=== PATIENT | male | born 1945 | race Caucasian/White ===

== ENCOUNTER 2017-05-03 13:32 | Inpatient (IN) | payer OTHER, BC ==
[~2017-05-03] VITALS: Ht 180.3 cm; Wt 86.8 kg
[2017-05-03 15:33] LABS: HEMATOCRIT 45.2 % (38.0-50.0); MCH 32.3 PG (29.0-34.0); MCHC 33.6 G/DL (30.0-36.0); MEAN PLAT.VOLUME 9.9 uM^3 (9.0-12.4); PLATELET COUNT 224 K/uL (156-360); RBC DIS.WIDTH-CV 12.9 % (11.8-14.6); RBC DIS.WIDTH-SD 46.2 % (39-53); RED BLOOD COUNT 4.71 M/uL (4.00-5.50); WHITE BLOOD COUNT 9.7 K/uL (4.1-10.2)
[2017-05-03 15:43] LABS: PROTHROMBIN TIME 11.1 SEC (10.2-12.9)
[2017-05-03 15:45] LABS: PTT 31.6 SEC (25-37)
[2017-05-03 15:47] LABS: CHLORIDE 109 mEq/L (99-109); POTASSIUM 4.1 mEq/L (3.7-5.4); SODIUM 141 mEq/L (136-147)
[2017-05-03 15:48] LABS: GLUCOSE 105 mg/dL (70-99)
[2017-05-03 15:50] LABS: ANION GAP 12 MEQ/L (2-14)
[2017-05-03 15:52] LABS: GFR ESTIMATE (CALCULATED) 53 mL/min/
[2017-05-03 15:53] LABS: UREA NITROGEN (BUN) 17 mg/dL (9-23)
[2017-05-03 16:37] LABS: TROP-I INTERPRETATION NEGATIVE; TROPONIN-I < 0.01 ng/mL (0.0-0.30)
[2017-05-03] MEDS ORDERED: LISINOPRIL20 MG PO (17:09)
[2017-05-03] MEDS ORDERED: CELEBREX100 MG PO (17:10)
[2017-05-03 22:02] VITALS: BP 178/83
[2017-05-03 22:36] LABS: TROP-I INTERPRETATION NEGATIVE; TROPONIN-I < 0.01 ng/mL (0.0-0.30)
[2017-05-03 23:21] VITALS: BP 142/80
[2017-05-04 03:32] VITALS: BP 129/68
[2017-05-04 06:08] LABS: INTER. NORMALIZED RATIO 1.1; PROTHROMBIN TIME 12.2 SEC (10.2-12.9)
[2017-05-04 06:09] LABS: PTT 30.7 SEC (25-37)
[2017-05-04 06:17] LABS: ANION GAP 6 MEQ/L (2-14); CHLORIDE 112 MEQ/L (99-109); GFR ESTIMATE (CALCULATED) > 59 mL/min/; GLUCOSE 83 mg/dL (70-99); POTASSIUM 4.3 MEQ/L (3.7-5.4); SAMPLE HEMOLYSIS CHECK 0; SAMPLE ICTERIC CHECK 0; SAMPLE LIPEMIA CHECK 0; SODIUM 142 MEQ/L (136-147); UREA NITROGEN (BUN) 12 mg/dL (9-23)
[2017-05-04 06:19] LABS: TROP-I INTERPRETATION NEGATIVE; TROPONIN-I 0.02 ng/mL (0.0-0.30)
[2017-05-04 06:26] LABS: HEMATOCRIT 38.7 % (38.0-50.0); MCH 32.1 PG (29.0-34.0); MCHC 33.1 G/DL (30.0-36.0); MEAN PLAT.VOLUME 9.8 uM^3 (9.0-12.4); PLATELET COUNT 195 K/uL (156-360); RBC DIS.WIDTH-CV 13.1 % (11.8-14.6); RBC DIS.WIDTH-SD 47.1 % (39-53); RED BLOOD COUNT 3.99 M/uL (4.00-5.50); WHITE BLOOD COUNT 7.6 K/uL (4.1-10.2)
[2017-05-04 07:49] VITALS: BP 135/84
[2017-05-04 08:27] LABS: POINT-OF-CARE METER ID UU13113698
[2017-05-04] MEDS ORDERED: ASPIR-LOW81 MG PO (12:19)
[2017-05-04] MEDS ORDERED: LOPRESSOR25 MG PO (12:19)
[2017-05-04 12:30] VITALS: BP 153/85
== END 2017-05-04 13:30 | disposition home or self-care (01) | DRG 310 ==
LOC: EME 13:32 → EDOF 18:57 → 4EAST 18:57
PROVIDERS: Hospitalist; Internal Medicine; Physician Assistant
DX: I47.2 Ventricular tachycardia (principal); I10 Essential (primary) hypertension; R07.9 Chest pain, unspecified; E78.5 Hyperlipidemia, unspecified; I44.0 Atrioventricular block, first degree; I49.5 Sick sinus syndrome; M54.12 Radiculopathy, cervical region; H91.90 Unspecified hearing loss, unspecified ear; Z87.891 Personal history of nicotine dependence; Z95.0 Presence of cardiac pacemaker; Z86.79 Personal history of other diseases of the circulatory system; Z79.899 Other long term (current) drug therapy; Z82.49 Family history of ischemic heart disease and other diseases of the circulatory system
CPT/HCPCS: 71010; 71275; 80048; 82948; 84484; 85027; 85610; 85730; 93005; 99281; 99285; J1644; J7030; J7050

== ENCOUNTER 2017-05-27 00:37 | Emergency (ER) | payer OTHER, BC ==
[~2017-05-27] VITALS: Ht 180.3 cm; Wt 88.4 kg
[~2017-05-27 00:37] MED LIST: ASPIR-LOW81 MG PO; CELEBREX100 MG PO; LISINOPRIL20 MG PO; LOPRESSOR25 MG PO
[2017-05-27 01:43] LABS: HEMATOCRIT 44.3 % (38.0-50.0); MCH 31.8 PG (29.0-34.0); MCHC 32.7 G/DL (30.0-36.0); MCV 97.1 FL (86-99); MEAN PLAT.VOLUME 10.1 uM^3 (9.0-12.4); PLATELET COUNT 198 K/uL (156-360); RBC DIS.WIDTH-CV 13.3 % (11.8-14.6); RBC DIS.WIDTH-SD 48.2 % (39-53); RED BLOOD COUNT 4.56 M/uL (4.00-5.50); WHITE BLOOD COUNT 10.9 K/uL (4.1-10.2)
[2017-05-27 01:59] LABS: CHLORIDE 109 mEq/L (99-109); POTASSIUM 4.1 mEq/L (3.7-5.4); SODIUM 143 mEq/L (136-147)
[2017-05-27 02:01] LABS: GLUCOSE 92 mg/dL (70-99)
[2017-05-27 02:03] LABS: ANION GAP 9 MEQ/L (2-14)
[2017-05-27 02:05] LABS: GFR ESTIMATE (CALCULATED) > 59 mL/min/
[2017-05-27 02:06] LABS: UREA NITROGEN (BUN) 26 mg/dL (9-23)
[2017-05-27 03:30] VITALS: BP 159/94
== END 2017-05-27 03:56 | disposition home or self-care (01) ==
LOC: EME 00:37
PROVIDERS: Emergency Medicine
DX: L27.0 Generalized skin eruption due to drugs and medicaments taken internally (principal); R06.00 Dyspnea, unspecified; T36.4X5A Adverse effect of tetracyclines, initial encounter; I10 Essential (primary) hypertension; Z87.891 Personal history of nicotine dependence
CPT/HCPCS: 80048; 85027; 99281; 99284

== ENCOUNTER 2017-12-14 22:43 | Emergency (ER) | payer OTHER, BC ==
[~2017-12-14] VITALS: Ht 180.3 cm; Wt 94.5 kg
[2017-12-14 23:35] LABS: HEMATOCRIT 41.2 % (38.0-50.0); HEMOGLOBIN 13.9 G/DL (12.5-16.6); MCH 32.4 PG (29.0-34.0); MCHC 33.7 G/DL (30.0-36.0); PLATELET COUNT 221 K/uL (156-360); RBC DIS.WIDTH-CV 12.6 % (11.8-14.6); RBC DIS.WIDTH-SD 44.6 % (39-53); RED BLOOD COUNT 4.29 M/uL (4.00-5.50); WHITE BLOOD COUNT 10.1 K/uL (4.1-10.2)
[2017-12-14 23:46] LABS: CHLORIDE 107 mEq/L (99-109); POTASSIUM 3.6 mEq/L (3.7-5.4); SODIUM 140 mEq/L (136-147)
[2017-12-14 23:47] LABS: GLUCOSE 123 mg/dL (70-99)
[2017-12-14 23:51] LABS: GFR ESTIMATE (CALCULATED) > 59 mL/min/ (58.99-99999)
[2017-12-14 23:52] LABS: UREA NITROGEN (BUN) 16 mg/dL (9-23)
[2017-12-14 23:56] LABS: TROP-I INTERPRETATION NEGATIVE; TROPONIN-I < 0.01 ng/mL (0.0-0.30)
[2017-12-15 01:19] VITALS: BP 164/93
== END 2017-12-15 01:41 | disposition home or self-care (01) ==
LOC: EME 22:43
DX: M62.830 Muscle spasm of back (principal); I10 Essential (primary) hypertension; E78.5 Hyperlipidemia, unspecified; Z87.891 Personal history of nicotine dependence; Z88.2 Allergy status to sulfonamides; Z88.8 Allergy status to other drugs, medicaments and biological substances
CPT/HCPCS: 71046; 80048; 84484; 85027; 93005; 99281; 99285

== ENCOUNTER → 2018-02-17 | Outpatient (CLI) | payer OTHER, BC | END | disposition home or self-care (01) | LOC: RAD 14:00 | PROC: 3E0R3KZ Introduction of Other Diagnostic Substance into Spinal Canal, Percutaneous Approach (ICD-10-PCS; principal; 2018-02-17) | DX: M47.897 Other spondylosis, lumbosacral region (principal) | CPT/HCPCS: 62304; 72132 ==